=== PATIENT | male | born 1935 | race Caucasian/White ===

== ENCOUNTER 2017-06-29 16:15 | Emergency (ER) | payer MEDICARE ==
[~2017-06-29 16:15] MED LIST: Sodium Chloride 0.9% 100 ML BAG ONE
[2017-06-29] MEDS ORDERED: cefTRIAXone\\ROCEPHIN 2 GM VIAL ONE (17:38)
[2017-06-29] MEDS ORDERED: Benzonatate 100 MG CAP ONE (17:38)
[2017-06-29] MEDS ORDERED: Dexamethasone 10 MG/ML VIAL ONE (17:38)
[2017-06-29] MEDS ORDERED: Aspirin 325 MG TAB ONE (17:38)
[2017-06-29] MEDS ORDERED: Ondansetron HCl/PF 4 MG/2 ML Vial ONE ×2 (18:00→18:01)
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
[2017-06-29 18:13] LABS: PTT 33.2 SEC (22.9-36.1)
[2017-06-29 18:19] LABS: INR-International Normal Ratio 1.9; Prothrombin Time 22.2 SEC (12.0-14.7)
[2017-06-29 18:25] LABS: Band 4 % (5-11); Hemoglobin 10.9 g/dL (14.0-18.0); Lymphocytes 10 % (21-51); MDiff Complete? YES; Mean Corpuscular HGB CONC 30.5 g/dL (32.0-36.0); Mean Corpuscular Hemoglobin 26.2 pg (27.0-31.0); Mean Corpuscular Volume 85.9 fl (80.0-94.0); Mean Platelet Volume 6.5 fL (7.4-10.4); Monocytes 12 % (0-10); Neutrophil 74 % (42-75); PLT Morphology Comment Appears Increased; Platelet Count 412 thou/uL (130-400); Red Blood Cell (RBC) Count 4.15 mill/uL (4.70-6.10); White Blood Cell (WBC) Count 16.6 thou/uL (4.8-10.8)
[2017-06-29 18:27] LABS: ALT (SGPT) 119 U/L (8-55); AST (SGOT) 146 U/L (5-34); Alkaline Phosphatase 89 U/L (40-150); Anion Gap 36 mmol/L (10-20); BUN (Urea Nitrogen) 37 mg/dL (8.4-25.7); Bilirubin, Total 5.5 mg/dL (0.2-1.2); CK (CPK) 232 U/L (30-200); Calc. Creatinine Clearance 0 mL/min (70-130); Calcium 9.9 mg/dL (7.8-10.44); Carbon Dioxide 12 mmol/L (23-31); Chloride 94 mmol/L (98-107); Estimated GFR-MDRD 19; Glucose 122 mg/dL (83-110); Potassium 4.8 mmol/L (3.5-5.1); Protein, Total 8.1 g/dL (5.8-8.1); Sodium 137 mmol/L (136-145)
[2017-06-29 18:41] LABS: Albumin 4.1 g/dL (3.4-4.8); Troponin I 0.067 ng/mL (< 0.028)
[2017-06-29 18:44] LABS: CKMB 12.7 ng/mL (0-6.6)
[2017-06-29] MEDS ORDERED: methylPREDNISolone Sod Succ/PF 125 MG/2 ML VIAL ONE (22:09)
[2017-06-29] MEDS ORDERED: Azithromycin 250 MG TAB ONE (22:09)
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
== END 2017-06-29 23:59 | disposition short-term general hospital (02) ==
LOC: MADERS 16:15
DX: A41.9 Sepsis, unspecified organism (principal); J18.9 Pneumonia, unspecified organism; I13.0 Hypertensive heart and chronic kidney disease with heart failure and stage 1 through stage 4 chronic kidney disease, or unspecified chronic kidney disease; I50.9 Heart failure, unspecified; N18.9 Chronic kidney disease, unspecified; J44.9 Chronic obstructive pulmonary disease, unspecified; D64.9 Anemia, unspecified; R74.8 Abnormal levels of other serum enzymes; I25.10 Atherosclerotic heart disease of native coronary artery without angina pectoris; I48.91 Unspecified atrial fibrillation; Z79.82 Long term (current) use of aspirin; Z79.899 Other long term (current) drug therapy
CPT/HCPCS: 36415; 71045; 74176; 80053; 82550; 82553; 83605; 83880; 84484; 85025; 85610; 85652; 85730; 87040; 87081; 87430; 87804; 93005; 94760; 96365; 96366; 96375; J0696; J1100; J2405; J2930; J7050; J7620

== ENCOUNTER 2018-12-30 15:12 | Emergency (ER) | payer MEDICARE ==
[~2018-12-30 15:12] MED LIST changes: +Iopamidol 370 76% 125 ML VIAL FS ONE
[2018-12-30 15:54] LABS: #Basophils 0.1 thou/uL (0.0-0.2); #Eosinphils 0.3 thou/uL (0.0-0.7); #Lymphocytes 1.2 thou/uL (1.20-3.40); #Neutrophils 6.4 thou/uL (1.40-6.50); %Basophils 1.1 % (0.0-1.0); %Eosinophils 3.5 % (0.0-10.0); %Lymphocytes 13.6 % (21.0-51.0); %Monocytes 10.8 % (0.0-10.0); %Neutrophils 70.9 % (42.0-75.0); Hemoglobin 6.5 g/dL (14.0-18.0); Mean Corpuscular HGB CONC 32.6 g/dL (32.0-36.0); Mean Corpuscular Hemoglobin 27.2 pg (27.0-31.0); Mean Corpuscular Volume 83.4 fL (78.0-98.0); Mean Platelet Volume 4.8 fL (7.4-10.4); Platelet Count 265 thou/uL (130-400); RBC Distribution Width 16.4 % (11.5-14.5)
[2018-12-30 16:13] LABS: ALT (SGPT) 14 U/L (8-55); AST (SGOT) 23 U/L (5-34); Albumin 3.3 g/dL (3.4-4.8); Alkaline Phosphatase 79 U/L (40-150); Anion Gap 13 mmol/L (10-20); BUN (Urea Nitrogen) 20 mg/dL (8.4-25.7); Bilirubin, Total 0.6 mg/dL (0.2-1.2); Calc. Creatinine Clearance 0 mL/min (70-130); Carbon Dioxide 24 mmol/L (23-31); Chloride 102 mmol/L (98-107); Estimated GFR-MDRD 71; Glucose 100 mg/dL (83-110); Potassium 4.5 mmol/L (3.5-5.1); Protein, Total 6.3 g/dL (5.8-8.1); Sodium 134 mmol/L (136-145)
[2018-12-30 16:14] LABS: Digoxin 1.32 ng/mL (0.8-2.0)
--- NOTE | 2018-12-30 16:15 | RAD ---
EXAM: Chest 2 views: HISTORY: Dyspnea COMPARISON: 06/29/2017 FINDINGS: There is a normal-sized cardiomediastinal silhouette. There is no evidence of consolidation, mass, or pleural effusion. The bones are unremarkable. IMPRESSION: No evidence of acute cardiopulmonary disease
[2018-12-30 16:31] LABS: CKMB 6.4 ng/mL (0-6.6)
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
== END 2018-12-30 18:57 | disposition short-term general hospital (02) ==
LOC: MADERS 15:12
DX: K92.2 Gastrointestinal hemorrhage, unspecified (principal); D50.0 Iron deficiency anemia secondary to blood loss (chronic); I11.0 Hypertensive heart disease with heart failure; I50.9 Heart failure, unspecified; I48.91 Unspecified atrial fibrillation; J44.9 Chronic obstructive pulmonary disease, unspecified
CPT/HCPCS: 36415; 71046; 71275; 80053; 80162; 82274; 82553; 83605; 83880; 84484; 85025; 85379; 93005; 94760; J3490; Q9967

== ENCOUNTER 2020-02-19 20:26 | Emergency (ER) | payer MEDICARE ==
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
[2020-02-19 21:39] LABS: #Basophils 0.1 thou/uL (0.0-0.2); #Lymphocytes 1.3 thou/uL (1.20-3.40); #Monocytes 0.9 thou/uL (0.11-0.59); #Neutrophils 9.2 thou/uL (1.40-6.50); %Basophils 0.9 % (0.0-1.0); %Eosinophils 0.1 % (0.0-10.0); %Lymphocytes 11.5 % (21.0-51.0); %Monocytes 7.6 % (0.0-10.0); %Neutrophils 79.9 % (42.0-75.0); Hemoglobin 10.5 g/dL (14.0-18.0); Mean Corpuscular HGB CONC 32.8 g/dL (32.0-36.0); Mean Corpuscular Hemoglobin 27.8 pg (27.0-31.0); Mean Corpuscular Volume 84.7 fL (78.0-98.0); Mean Platelet Volume 6.5 fL (7.4-10.4); Platelet Count 350 thou/uL (130-400); RBC Distribution Width 13.2 % (11.5-14.5); Red Blood Cell (RBC) Count 3.78 mill/uL (4.70-6.10); White Blood Cell (WBC) Count 11.5 thou/uL (4.8-10.8)
[2020-02-19 22:00] LABS: ALT (SGPT) 18 U/L (8-55); AST (SGOT) 30 U/L (5-34); Alkaline Phosphatase 76 U/L (40-110); Anion Gap 17 mmol/L (10-20); BUN (Urea Nitrogen) 30 mg/dL (8.4-25.7); Bilirubin, Total 1.1 mg/dL (0.2-1.2); Calc. Creatinine Clearance 0 mL/min (70-130); Calcium 8.8 mg/dL (7.8-10.44); Carbon Dioxide 25 mmol/L (23-31); Chloride 101 mmol/L (98-107); Estimated GFR-MDRD 52; Globulin 3.6 g/dL (2.4-3.5); Glucose 114 mg/dL (83-110); Potassium 4.2 mmol/L (3.5-5.1); Protein, Total 7.6 g/dL (5.8-8.1); Sodium 139 mmol/L (136-145)
[2020-02-19] MEDS ORDERED: Amoxicillin/Potassium Clav 875 MG TAB ONE (22:28)
[2020-02-19] MEDS ORDERED: Bacitracin 1 PK ONE (22:36)
== END 2020-02-19 22:46 | disposition home or self-care (01) ==
LOC: MADERS 20:26
DX: S81.811A Laceration without foreign body, right lower leg, initial encounter (principal); S41.112A Laceration without foreign body of left upper arm, initial encounter; I11.0 Hypertensive heart disease with heart failure; I50.9 Heart failure, unspecified; I48.91 Unspecified atrial fibrillation; V57.5XXA Driver of pick-up truck or van injured in collision with fixed or stationary object in traffic accident, initial encounter
CPT/HCPCS: 12002; 36415; 80053; 85025

== ENCOUNTER 2020-03-03 12:50 | Emergency (ER) | payer MEDICARE ==
[~2020-03-03 12:50] MED LIST changes: -Iopamidol 370 76% 125 ML VIAL FS ONE; -Sodium Chloride 0.9% 100 ML BAG ONE; +Sodium Chloride 0.9% 500 ML BAG ONE
[2020-03-03 14:00] LABS: #Basophils 0.1 thou/uL (0.0-0.2); #Eosinphils 0.3 thou/uL (0.0-0.7); #Lymphocytes 1.4 thou/uL (1.20-3.40); #Monocytes 1.1 thou/uL (0.11-0.59); %Basophils 1.2 % (0.0-1.0); %Eosinophils 2.9 % (0.0-10.0); %Lymphocytes 12.5 % (21.0-51.0); %Monocytes 10.3 % (0.0-10.0); %Neutrophils 73.1 % (42.0-75.0); Hemoglobin 9.8 g/dL (14.0-18.0); Mean Corpuscular HGB CONC 31.1 g/dL (32.0-36.0); Mean Corpuscular Hemoglobin 26.1 pg (27.0-31.0); Mean Platelet Volume 5.9 fL (7.4-10.4); Platelet Count 280 thou/uL (130-400); RBC Distribution Width 13.4 % (11.5-14.5); Red Blood Cell (RBC) Count 3.74 mill/uL (4.70-6.10); White Blood Cell (WBC) Count 10.9 thou/uL (4.8-10.8)
[2020-03-03] MEDS ORDERED: Sodium Chloride 0.9% 1,000 ML ONE (14:10)
[2020-03-03] MEDS ORDERED: Vancomycin HCl 750 MG VIAL ONE (14:10)
[2020-03-03] MEDS ORDERED: Cefepime 2 GM VIAL ONE (14:10)
[2020-03-03] MEDS ORDERED: Sodium Chloride 0.9% 100 ML ONE (14:10)
[2020-03-03 14:15] LABS: ALT (SGPT) 15 U/L (8-55); AST (SGOT) 24 U/L (5-34); Albumin 3.9 g/dL (3.4-4.8); Alkaline Phosphatase 76 U/L (40-110); Anion Gap 17 mmol/L (10-20); BUN (Urea Nitrogen) 23 mg/dL (8.4-25.7); CK (CPK) 101 U/L (30-200); Calc. Creatinine Clearance 0 mL/min (70-130); Calcium 8.9 mg/dL (7.8-10.44); Carbon Dioxide 25 mmol/L (23-31); Chloride 101 mmol/L (98-107); Estimated GFR-MDRD 67; Globulin 3.7 g/dL (2.4-3.5); Glucose 93 mg/dL (83-110); Protein, Total 7.6 g/dL (5.8-8.1); Sodium 139 mmol/L (136-145)
== END 2020-03-03 15:24 | disposition short-term general hospital (02) ==
LOC: MADERS 12:50
DX: L03.115 Cellulitis of right lower limb (principal); M79.89 Other specified soft tissue disorders; I11.0 Hypertensive heart disease with heart failure; I50.9 Heart failure, unspecified; I48.91 Unspecified atrial fibrillation; J44.9 Chronic obstructive pulmonary disease, unspecified; Z79.899 Other long term (current) drug therapy; Z79.51 Long term (current) use of inhaled steroids
CPT/HCPCS: 80053; 82550; 83605; 85025; 87040; 93005; 94760; 96365; 96367; J0692; J3370; J3490; J7030; J7050

== ENCOUNTER 2020-05-11 13:08 | Emergency (ER) | payer MEDICARE, OTHER ==
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
== END 2020-05-11 14:32 | disposition home or self-care (01) ==
LOC: MADERS 13:08
DX: S00.01XA Abrasion of scalp, initial encounter (principal); J44.9 Chronic obstructive pulmonary disease, unspecified; I11.0 Hypertensive heart disease with heart failure; I50.9 Heart failure, unspecified; I48.91 Unspecified atrial fibrillation; Z79.899 Other long term (current) drug therapy; Z79.51 Long term (current) use of inhaled steroids; V89.2XXA Person injured in unspecified motor-vehicle accident, traffic, initial encounter
CPT/HCPCS: 70260

== ENCOUNTER 2020-06-05 07:01 | Emergency (ER) | payer MEDICARE, OTHER ==
[2020-06-05] MEDS ORDERED: Ondansetron PF 4 MG/2 ML Vial ONE (07:39)
[2020-06-05] MEDS ORDERED: Sodium Chloride 0.9% 1,000 ML ONE (07:39)
[2020-06-05 08:17] LABS: #Basophils 0.1 thou/uL (0.0-0.2); #Eosinphils 0.1 thou/uL (0.0-0.7); #Lymphocytes 1.3 thou/uL (1.20-3.40); #Monocytes 0.7 thou/uL (0.11-0.59); #Neutrophils 3.7 thou/uL (1.40-6.50); %Basophils 2.3 % (0.0-1.0); %Eosinophils 1.3 % (0.0-10.0); %Lymphocytes 21.5 % (21.0-51.0); %Monocytes 12.1 % (0.0-10.0); %Neutrophils 62.8 % (42.0-75.0); Anisocytosis SLIGHT = 6-15 cells (100X) (0-5/hpf); Hemoglobin 8.8 g/dL (14.0-18.0); Hypochromia SLIGHT = 6-15 cells (100X) (0-5/hpf); MDiff Complete? YES; Mean Corpuscular HGB CONC 28.6 g/dL (32.0-36.0); Mean Corpuscular Hemoglobin 19.7 pg (27.0-31.0); Mean Corpuscular Volume 68.6 fL (78.0-98.0); Mean Platelet Volume 5.9 fL (7.4-10.4); Microcytosis MODERATE=15-30 cells (100X) (0-5/hpf); Platelet Count 379 thou/uL (130-400); Polychromasia MODERATE = 3-4 cells (100X) (0-2/hpf); RBC Distribution Width 16.4 % (11.5-14.5); Red Blood Cell (RBC) Count 4.48 mill/uL (4.70-6.10); Target Cells SLIGHT = 2-5 cells (100X) (0-1/hpf); White Blood Cell (WBC) Count 5.8 thou/uL (4.8-10.8)
[2020-06-05 08:18] LABS: ALT (SGPT) 19 U/L (8-55); AST (SGOT) 28 U/L (5-34); Albumin 3.9 g/dL (3.4-4.8); Alkaline Phosphatase 84 U/L (40-110); Anion Gap 18 mmol/L (10-20); BUN (Urea Nitrogen) 29 mg/dL (8.4-25.7); Bilirubin, Total 1.9 mg/dL (0.2-1.2); CK (CPK) 116 U/L (30-200); Calc. Creatinine Clearance 0 mL/min (70-130); Carbon Dioxide 23 mmol/L (23-31); Chloride 101 mmol/L (98-107); Globulin 3.4 g/dL (2.4-3.5); Glucose 85 mg/dL (83-110); Potassium 4.2 mmol/L (3.5-5.1); Protein, Total 7.3 g/dL (5.8-8.1); Sodium 138 mmol/L (136-145)
[2020-06-05 08:45] LABS: CKMB 7.2 ng/mL (0-6.6); Digoxin 1.13 ng/mL (0.8-2.0)
[2020-06-05] MEDS ORDERED: Aspirin Chewable 81 MG TAB ONE (09:05)
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
== END 2020-06-05 10:44 | disposition short-term general hospital (02) ==
LOC: MADERS 07:01
DX: R94.39 Abnormal result of other cardiovascular function study (principal); R11.2 Nausea with vomiting, unspecified; K59.00 Constipation, unspecified; R63.0 Anorexia; I11.0 Hypertensive heart disease with heart failure; I50.9 Heart failure, unspecified; I48.91 Unspecified atrial fibrillation; J44.9 Chronic obstructive pulmonary disease, unspecified; Z79.899 Other long term (current) drug therapy
CPT/HCPCS: 74022; 80053; 80162; 82550; 82553; 83605; 84484; 85025; 85379; 93005; 96374; J2405; J7050

== ENCOUNTER 2021-03-09 17:26 | Emergency (ER) | payer MEDICARE ==
[2021-03-09] MEDS ORDERED: Furosemide 40 MG/4 ML VIAL ONE (18:40)
[2021-03-09 18:46] LABS: ALT (SGPT) 7 U/L (8-55); AST (SGOT) 15 U/L (5-34); Albumin 3.2 g/dL (3.4-4.8); Alkaline Phosphatase 75 U/L (40-110); Anion Gap 13 mmol/L (10-20); BUN (Urea Nitrogen) 18 mg/dL (8.4-25.7); Bilirubin, Total 2.2 mg/dL (0.2-1.2); Calc. Creatinine Clearance 0 mL/min (70-130); Calcium 8.8 mg/dL (7.8-10.44); Carbon Dioxide 23 mmol/L (23-31); Chloride 102 mmol/L (98-107); Glucose 85 mg/dL (83-110); Magnesium 2.1 mg/dL (1.6-2.6); Potassium 4.2 mmol/L (3.5-5.1); Protein, Total 6.2 g/dL (5.8-8.1); Sodium 134 mmol/L (136-145)
[2021-03-09 18:50] LABS: Band 1 % (5-11); Eosinophils 2 % (0-10); Hemoglobin 9.8 g/dL (14.0-18.0); Hypochromia SLIGHT = 6-15 cells (100X) (0-5/hpf); Lymphocytes 1 % (21-51); MDiff Complete? YES; Mean Corpuscular HGB CONC 30.4 g/dL (32.0-36.0); Mean Corpuscular Hemoglobin 25.6 pg (27.0-31.0); Mean Corpuscular Volume 84.2 fL (78.0-98.0); Mean Platelet Volume 5.9 fL (7.4-10.4); Metamyelocyte 1 % (0-0); Monocytes 3 % (0-10); Neutrophil 89 % (42-75); Platelet Count 284 thou/uL (130-400); Platelet Morphology Comment Appears Adequate; RBC Distribution Width 18.3 % (11.5-14.5); Reactive Lymphocytes 3 % (0-10); Red Blood Cell (RBC) Count 3.84 mill/uL (4.70-6.10); White Blood Cell (WBC) Count 26.6 thou/uL (4.8-10.8)
[2021-03-09] MEDS ORDERED: Cefepime 2 GM VIAL ONE (19:51)
[2021-03-09] MEDS ORDERED: Clindamycin/D5W 900 mg/50 ml Premix Bag ONE (19:51)
[2021-03-09] MEDS ORDERED: Sodium Chloride 0.9% 250 ML 250 ML ONE (19:52)
[2021-03-09] MEDS ORDERED: Sodium Chloride 0.9% 100 ML ONE (19:52)
[2021-03-09 19:59] LABS: Digoxin 1.49 ng/mL (0.8-2.0)
[2021-03-09] MEDS ORDERED: Ondansetron PF 4 MG/2 ML Vial ONE (21:20)
[2021-03-09 22:49] LABS: SARS-CoV-2 NAA Rapid Test Not Detected (NotDetected)
[2021-03-09 23:12] LABS: CKMB 6.3 ng/mL (0-6.6)
[2021-03-10] MEDS ORDERED: Heparin 25,000 units/D5W 500 ML ONE (00:05)
[2021-03-10 00:15] LABS: INR-International Normal Ratio 1.3; Prothrombin Time 16.4 sec (12.0-14.7)
[2021-03-10 00:16] LABS: PTT 41.4 sec (22.9-36.1)
[2021-03-10] MEDS ORDERED: Heparin 5,000 UNITS/ML VIAL ONE ×2 (00:17→00:18)
== END 2021-03-10 01:00 | disposition short-term general hospital (02) ==
LOC: MADERS 17:26
DX: L03.115 Cellulitis of right lower limb (principal); I21.4 Non-ST elevation (NSTEMI) myocardial infarction; J90 Pleural effusion, not elsewhere classified; E16.2 Hypoglycemia, unspecified; I13.0 Hypertensive heart and chronic kidney disease with heart failure and stage 1 through stage 4 chronic kidney disease, or unspecified chronic kidney disease; N18.9 Chronic kidney disease, unspecified; I50.9 Heart failure, unspecified; D72.829 Elevated white blood cell count, unspecified; I48.91 Unspecified atrial fibrillation; J44.9 Chronic obstructive pulmonary disease, unspecified; Z20.822 Contact with and (suspected) exposure to COVID-19; Z79.899 Other long term (current) drug therapy
CPT/HCPCS: 71045; 73590; 80053; 80162; 82553; 82962; 83605; 83735; 83880; 84484 ×2; 85025; 85379; 85610; 85730; 86140; 87040 ×2; 93005; 96365; 96366; 96367; 96375; 96376; 99285; U0002; 36415; 36416; J0692; J1644; J1940; J2405; J3370; J3490; J7050